=== PATIENT | female | born 2000 | race Caucasian/White ===

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

== ENCOUNTER 2024-01-12 13:36 | Emergency (ER) | payer MEDICAID, OTHER ==
[~2024-01-12] VITALS: Ht 162.6 cm; Wt 63.6 kg
[~2024-01-12 13:36] MED LIST: TRAZ150T80 PO
[2024-01-12 13:41] VITALS: TEMP 98.5
[2024-01-12] MEDS: MethylPREDNISolone SOD SUCC 125 MG/2 ML VIAL IVP ONE (14:33)
[2024-01-12] MEDS: DiphenhydrAMINE HCL 50 MG/ML VIAL IVP ONE (14:34)
[2024-01-12] MEDS: FAMOTIDINE 20 MG/2 ML VIAL IVP ONE (14:36)
[2024-01-12] MEDS ORDERED: DIPH-1243 PO (16:15)
[2024-01-12] MEDS ORDERED: METH4TAB3 PO (16:15)
[2024-01-12] MEDS ORDERED: FAMO20 PO (16:15)
[2024-01-12 16:25] VITALS: BP 105/55; PULSE 77; RESP 18; O2SAT 98
== END 2024-01-12 16:41 | disposition home or self-care (01) ==
LOC: EDUNIT# 13:36 → EMS 13:36
DX: L50.0 Allergic urticaria (principal)
CPT/HCPCS: 99284; 96374; 96375; J1200; J3490; J2919